=== PATIENT | female | born 1965 | race Caucasian/White ===

== ENCOUNTER 2017-01-31 16:49 | Emergency (ER) | payer BC ==
[~2017-01-31] VITALS: Ht 172.7 cm; Wt 153.2 kg
[~2017-01-31 16:49] MED LIST: ALBU8.5H INH; CEPH500C2 PO; FOLI1TAB15 PO; HYDR-2540 PO; INFL100V; METH2.5T6; ONDA8TAB5; POTA10CA37 PO; PRO AIR INHALER; VENL150C2 PO; VENL75CA60 PO
[2017-01-31 16:51] VITALS: Ht 172.7 cm; Wt 153.2 kg
[2017-01-31] MEDS ORDERED: ASPI1TAB72 (17:04)
--- NOTE | 2017-01-31 17:05 | NUR ---
PROVIDER DR HAMEED IN TO SEE PATIENT.
--- OUTSIDE RECORDS SUMMARY | 2017-01-31 17:08 | XMS REPORT | Continuity of Care Document ---
Author Author [facility] Organization [facility] Address Unknown Phone Unavailable Support Name Relationship Address Phone RADHA HENSLEY [employer] TECHNICIAN Caregiver [address] [place] [address] Unavailable DIRK PAEZ Next Of Kin [address] [place] [address] Insurance Providers Guarantor MarydennysNam Cutler Address [address] [id number] Payer [employer] Other Policy Number [id number] Subscriber's Name Dirk Paez Relationship 01 Spouse Group Number [id number] Chief Complaint and Reason for Visit Chief Complaint Ear Pain/Injury Reason for Visit [id number] Problems Active Problems Medical Problem Onset Date Status Eustachian tube dysfunction Unknown Acute Viral upper respiratory illness Unknown Acute Medications Current Home Medications Medication Dose Units Route Directions Days Qty Instructions Start Date Cephalexin 500 Mg Capsule 500 Mg Oral Twice A Day 7 Days [address] Miguel Singh [employer] Job [employer] [facility] [address] [phone] 01/25/17 Folic Acid 1 Mg Tablet 1 Tab Oral Daily 01/25/17 Hydrochlorothiazide 50 Mg Tablet 1 Tab Oral Give With Breakfast 01/25/17 Infliximab (Remicade) 100 Mg/Vial Vial 01/25/17 Methotrexate Sodium (Methotrexate) 2.5 Mg Tablet 01/25/17 Ondansetron Hcl (Zofran) 8 Mg Tablet 01/25/17 Potassium Chloride 10 Meq Capsule.er 10 Meq Oral Twice Daily With Meals Take 1 capsule, by mouth, two times a day with meals 01/25/17 Pro Air Inhaler 01/25/17 Venlafaxine Hcl (Effexor Xr) 75 Mg Cap.er.24h 75 Mg Oral Daily Venlafaxine Hcl (Effexor Xr) 150 Mg Cap.er.24h 150 Mg Oral Give With Breakfast 01/25/17 Social History No social history. Hospital Discharge Instructions No hospital discharge instructions. Plan of Care Discharge Date 01/25/17 12:27pm Disposition 01 DISCHARGED HOME, SELF-CARE Condition at Discharge Stable Instructions/Education Provided Upper Respiratory Infection (GEN) Eustachian Tube Dysfunction (GEN) Forms Provided [facility] Work/School Permit Prescriptions See Medication Section Additional Instructions/Education Flonase nasal spray twice a day x one week then once a day Zyrtec at bedtime Sudafed as directed on box. Functional Status No functional status results. Allergies, Adverse Reactions, Alerts Allergen Type Severity Reaction Status Last Updated Sulfadiazine Allergy Unknown Active 01/25/17 Immunizations Query Response on File Recorded Date/Time DTaP Vaccine History UTD 01/25/17 12:04pm Influenza Vaccine Hx 07/1501/25/17 12:04pm Tetanus Diptheria Vaccine History YES 01/25/17 12:04pm Vital Signs Acute Vital Signs Vital Response Date/Time Temperature (Fahrenheit) 97.2 deg F (96.8 - 99.1) 01/25/2017 11:57am Temperature (Calculated Celsius) 36.60010 degrees C (36.0 - 37.3) 01/25/2017 11:57am Pulse Rate (adult) 76 bpm (60 - 100) 01/25/2017 11:57am O2 Sat by Pulse Oximetry 97 % (90 - 100) 01/25/2017 11:57am Blood Pressure 138/83 mm Hg 01/25/2017 11:57am Height (Feet) 5 feet 01/25/2017 11:57am Height (Inches) 8.00 inches 01/25/2017 11:57am Weight (Kilograms) 153.900 kg 01/25/2017 11:57am Body Mass Index (BMI) 51.0 01/25/2017 11:57am Results No known relevant diagnostic tests, laboratory data and/or discharge summary. Procedures No known history of procedures. Encounters Encounter Location Arrival/Admit Date Discharge/Depart Date Attending Provider Departed Emergency Room [facility] 01/25/17 11:55am 01/25/17 12: 27pm RADHA HENSLEY APRN Recent Diagnosis
--- OUTSIDE RECORDS SUMMARY | 2017-01-31 17:09 | XMS REPORT | Continuity of Care Document ---
Author Author [facility] Organization [facility] Address Unknown Phone Unavailable Allergies Medications Problems Procedures Code Description Performed By Performed On 45.42 ENDOSC POLYPECTOMY OF LG INTEST Alexandro Rosen MD 09/03/2012 Results Encounters ACCT No. Visit Date/Time Discharge Status Pt. Type Provider Facility Loc./Unit Complaint [id number] 09/03/2012 08:16:00 2011 11:20:00 DIS Outpatient Silas ROJAS, Alexandro Chin [facility] W[facility]END
--- NOTE | 2017-01-31 17:12 | ERPDOC ---
Departure Disposition Decision Date: January 31, 2017 Disposition Decision Time: 18:18 Disposition: 01 DISCHARGED HOME, SELF-CARE Impression Impression Impression: Primary Impression: Pneumonia Severity: Moderate Condition: Improved Seen By: Physician only Patient Instructions: Bacterial Pneumonia (ED) Problems/Meds/Labs Reviewed?: Yes Medications reviewed and manag: Yes Additional Instructions: Zithromax 500 mg daily for 3 days. You were given a steroid injection and an antibiotic injection in the emergency department. Please follow up with her primary care provider or return to the emergency room if symptoms worsen. Follow up care ordered?: Yes Scripts Azithromycin (Zithromax Tri-Shawn) 500 Mg Tablet 1 TAB PO DAILY for 3 Days, TAB Prov: SELINA HAMEED MD 01/31/17 HPI - Fever General Chief Complaint: Fever Stated Complaint: FEVER,BODYACHES Time Seen by Provider: 17:01 HPI - Fever Initial Comments 51-year-old female presents with fever bodyaches and cough for the past 2-3 days. He now has headache. She feels like it's behind her sinuses and eyes. No nausea or vomitin. She was cold, had chills yesterday during the day. She did get a flu shot this year. No tobacco alcohol or drug usage. She thinks part of this may be that she is worn out between doing full-time job, going to school, and managing her home. No one else at home is ill. Allergies: Coded Allergies: sulfadiazine (Verified Allergy, Unknown, 01/31/17) Past History Patient Medical History Problem List Updates: Hypertension Surgical History Denies Surgeries Family History Family PMH: FOUND: asthma, cancer, depression, diabetes, hypertension Social History Smoking Status: Never smoker Substance Use Type: does not use Alcohol Intake: none Record Review Pertinent history updated: Yes Review of Systems ENMT Hearing: see HPI Sinuses: see HPI Nose: see HPI Mouth/Throat: see HPI Pulmonary Respiratory: see HPI GI Upper Abdomen: see HPI Musculoskeletal General: see HPI All other Systems All Other Systems: Reviewed and Negative Physical Exam General General Nourishment: well nourished, well developed, appears stated age Distress Description Headache, body aches obviously her impacting her. Vitals and Pain First Documented Vital Signs Date Time Temp Pulse Resp B/P Pulse Ox O2 Delivery O2 Flow Rate FiO2 01/31/17 16:51 99.0 116 20 154/90 95 Room Air Weight: Kilograms: 153.200 Height (feet): 5 Height (inches): 8.00 Triage Pain Scale: Normal Exams: Head: Normocephalic w/o trauma CV: Regular rate and rhythm, without murmur or gallop, Pulses 2+ all extremities, capillary refill, <2 seconds all ext., no pedal edema noted Abdomen: Bowel sounds positive, soft, non-tender, non-distended, no hepatosplenomegaly, masses or bruits noted Neurologic: Patient is alert, and oriented, cranial nerves, motor/sensory/ cerebellar, exams w/o gross deficits, to observation Psychiatric: Patient exhibits, appropriate attention, emotion and affect Eyes (brief) Eyes Brief: found: EOMI, PERRL ENMT (brief) ENMT Brief: FOUND: TM clear, TM good light reflex, nasal erythema, nasal exudate Respiratory (brief) Comments Crackles right lower lobe Abdomen (brief) Abdominal Brief: FOUND: bowel normo active x4, soft, NOT FOUND: tender Differential Diagnoses Considering: Acute Bronchitis, Influenza, Otitis Media, Pneumonia, Pulmonary Embolus, Pyelonephritis, URI Progress Results/Orders Orders Procedure Category Date Status Time Cmp - Comprehensive LAB 01/31/17 In Process Metabolic 17:17 Probnp LAB 01/31/17 In Process 17:17 Cbc W/Auto LAB 01/31/17 In Process Diff-Reflex Manual 17:17 Blood Culture ARSENIO 01/31/17 In Process 17:17 D-Dimer LAB 01/31/17 Complete 17:17 Troponin I W LAB 01/31/17 In Process Hemolysis Index 17:17 Influenza A/B By Pcr LAB 01/31/17 Logged 17:17 EKG EKG 01/31/17 Taken 17:17 Chest, Pa & Lateral RAD 01/31/17 Taken 17:17 Iv Lock (Ed Only) EDM 01/31/17 Transmitted 17:17 Normal Saline (Normal PHA 01/31/17 In Process Saline Iv) 17:17 Lactate - Lactic Acid LAB 01/31/17 Complete Lactate - Lactic Acid LAB 01/31/17 Logged 21:47 Ketorolac (Toradol) PHA 01/31/17 Complete 18:00 Lab Results Laboratory Tests Test 01/31/17 17:39 01/31/17 17:49 Plasma Lactate 1.3MMOL/L White Blood Count 17.2T/MM3 Red Blood Count 3.96M/MM3 Hemoglobin 11.4GM/DL Hematocrit 35.6% Mean Corpuscular Volume 89.9UM3 Mean Corpuscular Hemoglobin 28.8UUG Mean Corpuscular Hemoglobin Concent 32.0GM/DL RDW Standard Deviation 51.6FL Platelet Count 255T/MM3 Mean Platelet Volume 8.9UM3 Immature Granulocyte % (Auto) % Neutrophils (%) (Auto) % Lymphocytes (%) (Auto) % Monocytes (%) (Auto) % Eosinophils (%) (Auto) % Basophils (%) (Auto) % Absolute Immature Granulocyte (auto T/MM3 Absolute Neutrophils (auto) T/MM3 Absolute Lymphocytes (auto) T/MM3 Absolute Monocytes (auto) T/MM3 Absolute Eosinophils (auto) T/MM3 Absolute Basophils (auto) T/MM3 Neutrophils % (Manual) Pending Red Cell Morphology Comment Pending D-Dimer 341NG/ML Turbidity Pending Sodium Level 140MEQ/L Potassium Level 3.1MEQ/L Chloride Level 100MEQ/L Carbon Dioxide Level 28MEQ/L Anion Gap 12MEQ/L Blood Urea Nitrogen 16.0MG/DL Creatinine 0.9MG/DL Glomerular Filtration Rate Calc 66 BUN/Creatinine Ratio 18RATIO Glucose Level 108MG/DL Calculated Osmolality 271MOSM/KG Calcium Level 8.8MG/DL Total Bilirubin 0.60MG/DL Icterus Index Pending Aspartate Amino Transf (AST/SGOT) 35U/L Alanine Aminotransferase (ALT/SGPT) 59U/L Alkaline Phosphatase 91U/L Troponin I Pending RH-Bjt-E-Type Natriuretic Peptide Pending Total Protein 8.0G/DL Albumin 3.5G/DL Globulin 4.5G/DL Albumin/Globulin Ratio 0.8RATIO Chemistry Specimen Hemolysis Pending Medications Current ED Medications Sodium Chloride (Normal Saline IV) 1,000 ml @ 1,000 mls/hr Q1H ONCE IV Last administered on 01/31/17 17:00; Start 01/31/17 at 17:17; Stop 01/31/17 at 18:16 Ketorolac Tromethamine (Toradol) 30 mg O ONCE IV Last administered on 17:54; Start 01/31/17 at 18:00; Stop 01/31/17 at 18:01; Status DC Progress Progress Elevated white count 17,000, left shift noted. On x-ray right lower lobe pneumonia is seen. Patient be treated with Rocephin 1 g IV and Decadron 10 mg IM. Zithromax 500 mg daily for 3 days. Follow-up with primary care provider. D- dimer was elevated at 340, but I have good reason for the shortness of breath cough and body ache. At this point I do not think that she has pulmonary embolus ,. Did discuss with her that if symptoms worsen she is to come back, recommend CT at that point, she would like to avoid the CT now. She did decline an influenza swab as well. SELINA HAMEED MD January 31, 2017 17:11
[2017-01-31] MEDS ORDERED: NORMAL SALINE 1,000 ML IV ONE (17:17)
--- OUTSIDE RECORDS SUMMARY | 2017-01-31 17:20 | XMS REPORT | Continuity of Care Document ---
Author Author [facility] Organization [facility] Address Unknown Phone Unavailable Allergies Medications Problems Procedures Code Description Performed By Performed On 45.42 ENDOSC POLYPECTOMY OF LG INTEST Alexandro Rosen MD 09/03/2012 Results Encounters ACCT No. Visit Date/Time Discharge Status Pt. Type Provider Facility Loc./Unit Complaint [id number] 09/03/2012 08:16:00 2011 11:20:00 DIS Outpatient Silas ROJAS, Alexandro Chin [facility] W[facility]
--- NOTE | 2017-01-31 17:52 | NUR ---
PROVIDER DR HAMEED IN TO SEE PATIENT.
[2017-01-31 17:56] LABS: HCT - HEMATOCRIT 35.6 % (36-46); HGB - HEMOGLOBIN 11.4 GM/DL (12-16); MEAN CORPUSCULAR HGB 28.8 UUG (26-34); MEAN CORPUSCULAR VOLUME 89.9 UM3 (80-100); MEAN PLATELET VOLUME 8.9 UM3 (9.4-12.4); RED BLOOD COUNT 3.96 M/MM3 (4.00-5.20); WBC - WHITE BLOOD COUNT 17.2 T/MM3 (4.5-11.0)
[2017-01-31] MEDS ORDERED: KETOROLAC 30mg/ml INJECTION IV ONE (18:00)
--- NOTE | 2017-01-31 18:00 | NUR ---
XRAY TO XRAY PER W/C.
--- NOTE | 2017-01-31 18:07 | NUR ---
XRAY BACK FROM XRAY.
[2017-01-31 18:11] LABS: ALBUMIN 3.5 G/DL (3.5-5.0); ALBUMIN/GLOBULIN RATIO 0.8 RATIO (1.1-2.2); ALKALINE PHOSPHATASE 91 U/L (38-126); ALT (SGPT) 59 U/L (9-52); ANION GAP 12 MEQ/L (5-15); AST (SGOT) 35 U/L (14-36); BUN/CREATININE RATIO 18 RATIO (6-26); CALCIUM 8.8 MG/DL (8.4-10.2); CHLORIDE 100 MEQ/L (98-107); CO2 - CARBON DIOXIDE 28 MEQ/L (22-30); CREATININE 0.9 MG/DL (0.7-1.2); GLOMERULAR FILTRATION RATE 66; GLUCOSE 108 MG/DL (65-110); POTASSIUM 3.1 MEQ/L (3.6-5); SODIUM 140 MEQ/L (134-144)
[2017-01-31] MEDS ORDERED: AZIT500T2 PO (18:20)
[2017-01-31 18:24] LABS: PROBNP 102 PG/ML (0-175)
--- NOTE | 2017-01-31 18:24 | NUR ---
PROVIDER DR HAMEED IN TO SEE PATIENT.
[2017-01-31] MEDS ORDERED: CEFTRIAXONE I.V. (ER USE ONLY) 1 G in NORMAL SALINE 100 ML IV ONE (18:30)
[2017-01-31] MEDS ORDERED: DEXAMETHASONE 4mg/ml - 1ml INJECTION IM ONE (18:30)
[2017-01-31 18:37] LABS: BAND NEUTROPHILS # 1.5 T/MM3; LYMPHOCYTES # (MANUAL) 0.2 T/MM3 (1-4.8); METAMYELOCYTES # 0.2 T/MM3; MONOCYTES # (MANUAL) 1.7 T/MM3 (0-0.8); NEUTROPHILS #(MANUAL)-ABSOLUTE 13.6 T/MM3 (1.8-7.7); TOTAL CELLS COUNTED 100 %
[2017-01-31 18:38] LABS: ANISOCYTOSIS 1+
--- NOTE | 2017-01-31 18:44 | NUR ---
PROVIDER DR HAMEED IN TO SEE PATIENT.
[2017-01-31 19:16] VITALS: BP 120/67; PULSE 100; RESP 16; TEMP 99.4; O2SAT 95
--- NOTE | 2017-02-01 08:12 | DI ---
INDICATION: ITS.REASON: dyspnea PROCEDURE: CHEST 2-VIEWS UPRIGHT (PA \T\ LAT) Encounter: Initial COMPARISON: None FINDINGS: The lungs are clear without evidence of focal abnormal airspace opacity. There is no pleural effusion or pneumothorax. The heart size, mediastinal contours and pulmonary vascularity are within normal limits. There is no significant skeletal abnormality. IMPRESSION: No acute cardiopulmonary disease. .
== END 2017-01-31 19:16 | disposition home or self-care (01) ==
LOC: ED 16:49
DX: J18.9 Pneumonia, unspecified organism (principal)
CPT/HCPCS: 36415; 71020; 80053; 83605; 83880; 84484; 85025; 85379; 87040; 93005; 96361; 96365; 96372; 96375; 99284; J0696; J1100; J1885; J7030; J7050